=== PATIENT | female | born 1980 | race Caucasian/White ===

== ENCOUNTER 2017-01-24 07:42 | Emergency (ER) | payer OTHER ==
[2017-01-24 08:10] VITALS: BP 121/58
--- NOTE | 2017-01-24 09:12 | UC ---
Throat Pain/Nasal Jono HPI - HPI Summary HPI Summary: 36 Y/O female being seen for C/O sore throat and nasal congestion. States has had symptoms x 5 days. Denies nausea, vomiting, or respiratory dyspnea. Has been taking OTC medications with some relief. Requesting strep test. Medications reviewed at this visit. - History of Current Complaint Chief Complaint: UCGeneralIllness Stated Complaint: ALLERGIES,SORE THROAT Time Seen by Provider: 01/24/17 08:07 Hx Obtained From: Patient Hx Last Menstrual Period: 01/06/17 ?: No Onset/Duration: Lasting Days Severity: Moderate Pain Scale Used: 0-10 Numeric Cough: Productive Associated Signs & Symptoms: Positive: Negative - Epiglottits Risk Factors Epiglottis Risk Factors: Negative - Allergies/Home Medications Allergies/Adverse Reactions: Allergies Allergy/AdvReac Type Severity Reaction Status Date / Time No Known Allergies Allergy Verified 01/24/17 08:09 Home Medications: Home Medications Cetirizine* [ZyrTEC 10 MG TAB*] 1 tab PO DAILY 01/24/17 [History Confirmed 01/24] Insulin Infusion Pump [MinimXopik 670G Insulin Pump] 1 applic SUBCUT SEE INSTRUCTIONS 01/24/17 [History Confirmed 01/24/17] PMH/Surg Hx/FS Hx/Imm Hx Endocrine History Of: Reports: Diabetes - Type I - Surgical History Surgical History: None - Social History Alcohol Use: Weekly Alcohol Amount: 2 x weekly Substance Use Type: None Smoking Status (MU): Never Smoked Tobacco Review of Systems Constitutional: Negative Skin: Negative Eyes: Negative ENT: Sore Throat, Nasal Discharge Respiratory: Negative Cardiovascular: Negative Gastrointestinal: Negative Genitourinary: Negative Motor: Negative Neurovascular: Negative Musculoskeletal: Negative Neurological: Negative Psychological: Negative All Other Systems Reviewed And Are Negative: Yes Physical Exam Triage Information Reviewed: Yes Appearance: Well-Appearing Vital Signs: Initial Vital Signs Temp 98.1 F 01/24/17 08:02 Pulse 66 01/24/17 08:02 Resp 18 01/24/17 08:02 BP 121/58 01/24/17 08:02 Pulse Ox 98 01/24/17 08:02 Eye Exam: Normal ENT Exam: Other ENT: Positive: Pharyngeal erythema Dental Exam: Normal Neck exam: Normal Respiratory Exam: Normal Cardiovascular Exam: Normal Abdominal Exam: Normal Bowel Sounds: Positive: Present Musculoskeletal Exam: Normal Neurological Exam: Normal Psychological Exam: Normal Skin Exam: Normal Throat Pain/Nasal Course/Dx - Differential Dx/Diagnosis Differential Diagnosis/HQI/PQRI: Epiglottitis, Laryngitis, Pharyngitis, Tonsillitis Provider Diagnoses: Pharyngitis Discharge - Discharge Plan Condition: Stable Disposition: HOME Patient Education Materials: Pharyngitis (ED) Additional Instructions: If symptoms persist (do not improve over the next week) please follow up with primary care provider. May return to walk in for worsening symptoms.
== END 2017-01-24 09:31 | disposition home or self-care (01) ==
LOC: UCEAST 07:42
DX: J02.9 Acute pharyngitis, unspecified (principal)
CPT/HCPCS: 87651; 99211; G0463

== ENCOUNTER 2017-06-07 09:51 | Observation (INO) | payer OTHER ==
[2017-06-07] MEDS: NS 0.9% 1000 ML* 2,000 ML IV ONE ×2 (10:34→11:37)
[2017-06-07 10:52] LABS: Hematocrit 44 % (35-47); Hemoglobin 14.9 g/dl (12.0-16.0); Mean Corpuscular HGB Conc 34 g/dl (31-36); Mean Corpuscular Hemoglobin 29 pg (27-31); Mean Corpuscular Volume 86 fL (80-97); Mean Platelet Volume 9 um3 (7.4-10.4); Red Blood Count 5.08 10^6/ul (4.0-5.4); Red Cell Distribution Width 14 % (10.5-15); White Blood Count 14.3 10^3/ul (3.5-10.8)
[2017-06-07 11:00] LABS: Venous Bicarbonate HCO3 14.5 mmol/L (24-28)
[2017-06-07 11:16] LABS: Albumin 4.6 g/dL (3.2-5.2); BUN/Creatinine Ratio 16.9 (8-20); C Reactive Protein 2.86 mg/L (< 5.00); Calcium 9.6 mg/dL (8.6-10.3); EGFR African American 91.3 (>60); Globulin 2.8 g/dL (2-4); Potassium 4.2 mmol/L (3.5-5.0); Total Protein 7.4 g/dL (6.4-8.9)
[2017-06-07] MEDS ORDERED: Ketorolac INJ* 30 MG/ML 1 ML VIAL IV ONE (11:38)
[2017-06-07] MEDS ORDERED: Ondansetron INJ* 2 MG/ML VIAL IV ONE (11:38)
[2017-06-07] MEDS ORDERED: Ondansetron INJ* 2 MG/ML VIAL ONE (11:39)
[2017-06-07] MEDS ORDERED: Ketorolac INJ* 30 MG/ML 1 ML VIAL ONE (11:39)
--- NOTE | 2017-06-07 12:37 | ED ---
Kat Padilla Nilda, scribed for Ramy Caballero MD on 06/07/17 at 1014 . HPI Diabetic - HPI Summary HPI Summary: This patient is a 37 year old F presenting to [facility] accompanied by with a chief complaint of elevated blood sugar since 0100 this morning. The patient rates the pain 4/10 in severity. Symptoms aggravated and alleviated by nothing including insulin administered through out the day via insulin pump (first dose at 0200). Patient reports nausea and vomiting. Patient reports she may have DKA based on test strips used [employer]. The patient notes that initial blood glucose reading did not register when checked [employer] because reading was too high. Her blood glucose has not been able to substantially decrease. PMHx includes IDDM. - History Of Current Complaint Chief Complaint: EDDiabeticProb Time Seen by Provider: 06/07/17 10:09 Hx Obtained From: Patient Hx Last Menstrual Period: 01/06/17 Onset/Duration: Sudden Onset, Lasting Hours Severity Currently: Moderate Character: Alert Aggravating: Nothing Associated Signs & Symptoms: Nausea, Vomiting Related History: Insulin Requiring, Insulin Pump - Allergies/Home Medications Allergies/Adverse Reactions: Allergies Allergy/AdvReac Type Severity Reaction Status Date / Time No Known Allergies Allergy Verified 06/07/17 09:56 PMH/Surg Hx/FS Hx/Imm Hx Endocrine/Hematology History: Reports: Hx Diabetes - Type I Opthamlomology History: Denies: Hx Legally Blind EENT History: Denies: Hx Deafness Infectious Disease History: Denies: Traveled Outside the [place] in Last 30 Days - Family History Known Family History: Positive: Diabetes Negative: Hypertension - Social History Alcohol Use: Weekly Alcohol Amount: 2 x weekly Substance Use Type: Reports: None Smoking Status (MU): Never Smoked Tobacco Review of Systems Positive: Other - elevated blood sugar Positive: Vomiting, Nausea All Other Systems Reviewed And Are Negative: Yes Physical Exam Triage Information Reviewed: Yes Vital Signs On Initial Exam: Initial Vitals BP 112/60 06/07/17 09:57 Vital Signs Reviewed: Yes Appearance: Positive: Well-Appearing, No Pain Distress Skin: Positive: Warm, Skin Color Reflects Adequate Perfusion, Dry Head/Face: Positive: Normal Head/Face Inspection Eyes: Positive: Normal ENT: Positive: Normal ENT inspection Neck: Positive: Supple, Nontender Respiratory/Lung Sounds: Positive: Clear to Auscultation, Breath Sounds Present Cardiovascular: Positive: RRR Abdomen Description: Positive: Nontender, Soft Bowel Sounds: Positive: Present Musculoskeletal: Positive: Normal Neurological: Positive: Normal Psychiatric: Positive: Normal - [place] Coma Scale Coma Scale Total: 15 Diagnostics - Vital Signs Vital Signs Pulse BP Pulse Ox 06/07/17 10:00 87 113/62 100 06/07/17 09:59 83 100 06/07/17 09:57 112/60 - Laboratory Lab Results: Lab Results 06/07/17 06/07/17 06/07/17 Range/Units 10:35 10:35 10:35 WBC 14.3 H (3.5-10.8) 10^3/ul RBC 5.08 (4.0-5.4) 10^6/ul Hgb 14.9 (12.0-16.0) g/dl Hct 44 (35-47) % MCV 86 (80-97) fL MCH 29 (27-31) pg MCHC 34 (31-36) g/dl RDW 14 (10.5-15) % Plt Count 205 (150-450) 10^3/ul MPV 9 (7.4-10.4) um3 Neut % (Auto) 89.9 H (38-83) % Lymph % (Auto) 7.3 L (25-47) % [place] % (Auto) 2.1 (1-9) % Eos % (Auto) 0.3 (0-6) % Baso % (Auto) 0.4 (0-2) % Absolute Neuts (auto) 12.8 H (1.5-7.7) 10^3/ul Absolute Lymphs (auto) 1.0 (1.0-4.8) 10^3/ul Absolute Monos (auto) 0.3 (0-0.8) 10^3/ul Absolute Eos (auto) 0 (0-0.6) 10^3/ul Absolute Basos (auto) 0.1 (0-0.2) 10^3/ul Absolute Nucleated RBC 0 10^3/ul Nucleated RBC % 0 VBG pH (7.33-7.43) VBG pCO2 (41-51) mmHg VBG pO2 (35-45) mmHg VBG HCO3 (24-28) mmol/L VBG O2 Saturation (70-80) % VBG Base Excess (0-4) Sodium 135 (133-145) mmol/L Potassium 4.2 (3.5-5.0) mmol/L Chloride 99 L (101-111) mmol/L Carbon Dioxide 20 L (22-32) mmol/L Anion Gap 16 H (2-11) mmol/L BUN 15 (6-24) mg/dL Creatinine 0.89 (0.51-0.95) mg/dL Est GFR ( Amer) 91.3 (>60) Est GFR (Non-Af Amer) 71.0 (>60) BUN/Creatinine Ratio 16.9 (8-20) Glucose 345 H (70-100) mg/dL POC Glucose (mg/dL) (70-100) mg/dL Lactic Acid 3.1 H* (0.5-2.0) mmol/L Calcium 9.6 (8.6-10.3) mg/dL Total Bilirubin 2.00 H (0.2-1.0) mg/dL AST 20 (13-39) U/L ALT 15 (7-52) U/L Alkaline Phosphatase 73 (34-104) U/L C-Reactive Protein 2.86 (< 5.00) mg/L Total Protein 7.4 (6.4-8.9) g/dL Albumin 4.6 (3.2-5.2) g/dL Globulin 2.8 (2-4) g/dL Albumin/Globulin Ratio 1.6 (1-3) Beta HCG, Quant 1.92 mIU/mL 06/07/17 06/07/17 Range/Units 10:35 10:45 WBC (3.5-10.8) 10^3/ul RBC (4.0-5.4) 10^6/ul Hgb (12.0-16.0) g/dl Hct (35-47) % MCV (80-97) fL MCH (27-31) pg MCHC (31-36) g/dl RDW (10.5-15) % Plt Count (150-450) 10^3/ul MPV (7.4-10.4) um3 Neut % (Auto) (38-83) % Lymph % (Auto) (25-47) % [place] % (Auto) (1-9) % Eos % (Auto) (0-6) % Baso % (Auto) (0-2) % Absolute Neuts (auto) (1.5-7.7) 10^3/ul Absolute Lymphs (auto) (1.0-4.8) 10^3/ul Absolute Monos (auto) (0-0.8) 10^3/ul Absolute Eos (auto) (0-0.6) 10^3/ul Absolute Basos (auto) (0-0.2) 10^3/ul Absolute Nucleated RBC 10^3/ul Nucleated RBC % VBG pH 7.22 L (7.33-7.43) VBG pCO2 35 L (41-51) mmHg VBG pO2 37 (35-45) mmHg VBG HCO3 14.5 L (24-28) mmol/L VBG O2 Saturation 72.8 (70-80) % VBG Base Excess -12.5 L (0-4) Sodium (133-145) mmol/L Potassium (3.5-5.0) mmol/L Chloride (101-111) mmol/L Carbon Dioxide (22-32) mmol/L Anion Gap (2-11) mmol/L BUN (6-24) mg/dL Creatinine (0.51-0.95) mg/dL Est GFR ( Amer) (>60) Est GFR (Non-Af Amer) (>60) BUN/Creatinine Ratio (8-20) Glucose (70-100) mg/dL POC Glucose (mg/dL) 335 H (70-100) mg/dL Lactic Acid (0.5-2.0) mmol/L Calcium (8.6-10.3) mg/dL Total Bilirubin (0.2-1.0) mg/dL AST (13-39) U/L ALT (7-52) U/L Alkaline Phosphatase (34-104) U/L C-Reactive Protein (< 5.00) mg/L Total Protein (6.4-8.9) g/dL Albumin (3.2-5.2) g/dL Globulin (2-4) g/dL Albumin/Globulin Ratio (1-3) Beta HCG, Quant mIU/mL Result Diagrams: 06/07/17 10:35 06/07/17 10:35 Lab Statement: Any lab studies that have been ordered have been reviewed, and results considered in the medical decision making process. Diabetic Course/Dx - Course Course Of Treatment: Ms. Chinchilla presented because she has been having trouble keeping her BS down and tested her urine for ketones. She was found to be in mild DKA and was given IV NS. Dr. Menezes recommended OBV and the hospitalists are admitting her. - Diagnoses Provider Diagnoses: DKA (diabetic ketoacidoses) Discharge - Discharge Plan Condition: Stable Disposition: ADMITTED TO [facility] The documentation as recorded by the Kat narvaez Nilda accurately reflects the service I personally performed and the decisions made by me, Ramy Caballero MD.
[2017-06-07] MEDS: Ondansetron INJ* 2 MG/ML VIAL IV SCH ×3 (12:56→22:43)
[2017-06-07] MEDS ORDERED: NS 0.45% KCl 20 Meq 1000 ML* 1,000 ML IV SCH (13:00)
[2017-06-07] MEDS ORDERED: Insulin REGULAR(*) 1 UNITS UNIT SUBCUT ONE (13:10)
[2017-06-07] MEDS ORDERED: Insulin REGULAR(*) 1 UNITS UNIT ONE (13:42)
[2017-06-07 14:26] LABS: Urine Bilirubin Negative (Negative); Urine Glucose 3+(>=500 mg/dL) (Negative); Urine Nitrite Negative (Negative)
[2017-06-07 14:43] LABS: BUN/Creatinine Ratio 21.2 (8-20); Blood Urea Nitrogen 18 mg/dL (6-24); Calcium 8.5 mg/dL (8.6-10.3); Chloride 106 mmol/L (101-111); EGFR African American 96.3 (>60); EGFR Non-African American 74.9 (>60); Glucose 307 mg/dL (70-100); Phosphorus 3.4 mg/dL (2.5-5.0); Sodium 138 mmol/L (133-145)
[2017-06-07 14:57] LABS: Anion Gap 18 mmol/L (2-11); CO2 Carbon Dioxide 14 mmol/L (22-32)
[2017-06-07] MEDS: D5W 1/2 NS KCl 20 Meq 1000 ML* 1,000 ML IV SCH ×2 (15:00→21:34)
--- NOTE | 2017-06-07 15:55 | HP ---
HISTORY AND PHYSICAL: DATE OF ADMISSION: 06/07/17 ADMITTING PHYSICIAN: Lj Boyce MD PRIMARY CARE PROVIDER: Nestor Menezes MD CHIEF COMPLAINT: Nausea, vomiting, and hyperglycemia. HISTORY OF PRESENT ILLNESS: The patient is a 37-year-old female with past medical history of type 1 diabetes, on insulin pump, usually well managed, who woke up at 1 a.m. with nausea, vomiting, and noticed hyperglycemia. About 2 a.m., her blood sugars were in the 500s. Since then she has been self- administering herself boluses via her insulin pump overnight, but they only managed to get down to the mid 350s by ingot header. She contacted her primary care physician and concrete spreader, Dr. Nestor Menezes, who asked her to present to the emergency room. Of note, she also performed a point of care urine ketone test, which was rapidly positive. On presentation to the emergency room, she had anion gap of 16 with sodium 135, chloride 99, bicarb 20. VBG, 7.22, PCO2 35 , PO2 37, bicarb 14.5. She has been attesting to rapid heart rate/palpitations given her heart rates in the mid 80s. 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 She has a bad taste in her mouth. She has been having diarrhea overnight and episodes of nausea and vomiting continue, although did feel somewhat improved with the Zofran given in the ED. Initial vital signs are blood pressure 112/60, temperature 98.5 Fahrenheit, heart rate between 70 and 82, respiratory rate 17 to 19, on room air satting 100%. She denies fevers, chills, sick contacts. Did present with white count of 14.3, 89.9% neutrophils, lactic acidosis 3.1, presentation glucose was 345. CRP 2.8, within normal limits. Emergency physicians contacted Dr. Menezes, who recommended admission by hospitalist service and he will assume care hospital day #2. PAST MEDICAL HISTORY: Type 1 diabetic with an insulin pump. HOME MEDICATIONS: Include insulin pump with basal settings as outlined: At 12 a.m., 0.7 units an hour; 6 a.m. 0.85 units an hour; 10 a.m., 0.7 units an hour; 2 p.m., 0.8 units an hour; uses mealtime correction bolus of 1 unit for every 12g carbs. ALLERGIES: No known drug allergies. FAMILY HISTORY: Her dad is a type 2 vs 1.5 diabetic. SOCIAL HISTORY: Lives with , Wallace. 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 Nonsmoker, occasional social drinker, no illicit drug use. , Wallace, is her medical surrogate. REVIEW OF SYSTEMS: Complete 14-point review systems was negative except as per noted in the HPI. Of note, significant for nausea, vomiting, diarrhea, slight headache, and bad taste in her mouth, shortness of breath, palpitations. Denies chest pain, fevers, chills, sick contacts, rashes, weakness, vision changes, dysuria, increased frequency. PHYSICAL EXAMINATION GENERAL: The patient is in no acute distress, but occasionally sitting up with some nausea. HEENT: Atraumatic, normocephalic. No scleral icterus. No oropharynx lesions. NECK: Neck supple. No cervical lymphadenopathy. RESPIRATORY: Rapid shallow breathing. No wheezing, rales, or rhonchi. CARDIOVASCULAR: Normal S1 and S2. Normal rate and rhythm. No murmurs, rubs, or gallops. ABDOMEN: Soft, nontender, nondistended. No rebound. No guarding. EXTREMITIES: Warm, well perfused. No edema. SKIN: No lesions, no rashes. NEURO: BOYKIN, CNII-IIX intact, sensation intact ASSESSMENT AND PLAN: The patient is a 37-year-old female, type 1 diabetic, presenting in diabetic ketoacidosis despite insulin pump at home, also with associated nausea, vomiting, diarrhea, subjective shortness of breath, palpitations. The patient has been managing the diabetic ketoacidosis on her own at home, giving herself 4-unit boluses every hour most recently. We will ask the patient to stop using her insulin pump, i.e., turn it off for now. We will initiate DKA insulin protocol, bring her to the ICU for frequent blood draws (BMP) initially every 2 to 4 hours, with POCT glucose every hour. BMP, mag, phos until anion gap is resolved. Close monitoring of her potassium, we will supplement and hydrate aggressively with half normal saline with 20 mEq potassium supplementation with plan to transition to D5 half-normal saline once blood glucose drops below 200-250. We will continue with frequent monitoring until gap is closed and then restart her insulin pump versus give her long- acting Lantus insulin given the concern that the pump may be somewhat failing versus insulin may be bad. Case was discussed with Dr. Nestor Menezes, who will take over the case tomorrow. The patient will be treated symptomatically for her nausea, vomiting with Zofran every 4 to 6 hours. Get EKG to confirm the QTc is in safe range. The patient really has no other medical issues and will be hopefully discharged by tomorrow. We will monitor for any other signs of secondary infection though likely triggered by either a malfunctioning pump or gastroenteritis bout. The patient is a full code. The patient will be n.p.o. while on insulin drip. Plan to transition to carb consistent diet after gap is closed and tolerating p.o. without nausea. [id number]/CPS #: [id number] MTDD
[2017-06-07 16:11] LABS: EGFR African American 104.7 (>60); EGFR Non-African American 81.4 (>60); Potassium 3.6 mmol/L (3.5-5.0)
[2017-06-07 20:44] LABS: BUN/Creatinine Ratio 17.4 (8-20); Calcium 7.8 mg/dL (8.6-10.3); EGFR African American 122.5 (>60); EGFR Non-African American 95.2 (>60); Magnesium 1.6 mg/dL (1.9-2.7); Potassium 3.9 mmol/L (3.5-5.0)
[2017-06-07] MEDS ORDERED: Insulin LISPRO* 1 UNITS UNIT SUBCUT SCH ×2 (21:00)
[2017-06-07] MEDS ORDERED: Insulin LISPRO* FOR INSULIN PUMP SUBCUT SCH (22:00)
[2017-06-07] MEDS ORDERED: Dextrose 50% Syringe 50 ML* 25 GM/50 ML SYRINGE IV PUSH PRN (22:11)
[2017-06-07] MEDS ORDERED: [UNRECOGNIZED DRUG - OTHER] SUBCUT SCH (23:00)
[2017-06-08] MEDS ORDERED: Ibuprofen TAB* 600 MG PO PRN (00:40)
[2017-06-08] MEDS ORDERED: Insulin LISPRO* 1 UNITS UNIT SUBCUT SCH ×3 (01:00→07:30)
[2017-06-08] MEDS: Ondansetron INJ* 2 MG/ML VIAL IV SCH ×2 (01:11→05:35)
[2017-06-08] MEDS ORDERED: Dextrose 50% Syringe 50 ML* 25 GM/50 ML SYRINGE IV PUSH PRN (04:04)
[2017-06-08] MEDS ORDERED: Insulin LISPRO* 1 UNITS UNIT SUBCUT ONE (04:04)
[2017-06-08] MEDS ORDERED: Ondansetron INJ* 2 MG/ML VIAL IV PRN (05:54)
[2017-06-08 06:27] LABS: Hematocrit 33 % (35-47); Hemoglobin 11.5 g/dl (12.0-16.0); Mean Corpuscular HGB Conc 35 g/dl (31-36); Mean Corpuscular Hemoglobin 30 pg (27-31); Mean Corpuscular Volume 85 fL (80-97); Mean Platelet Volume 9 um3 (7.4-10.4); Red Cell Distribution Width 14 % (10.5-15); White Blood Count 8.7 10^3/ul (3.5-10.8)
[2017-06-08 06:36] LABS: BUN/Creatinine Ratio 18.4 (8-20); Calcium 8.1 mg/dL (8.6-10.3); EGFR African American 109.5 (>60); EGFR Non-African American 85.2 (>60); Potassium 3.3 mmol/L (3.5-5.0)
--- NOTE | 2017-06-08 06:52 | PN ---
Progress Note - Progress Note Date of Service: 06/08/17 Note: Cross cover: Pt felt as if she was hypoglycemic this AM. FSG was 40. She received 12.5mg dextrose. I believe the short acting lispro coverage overnight was to blame. Decreasing lispro SS to medium dose. I am not changing her basal rate on her pump.
--- NOTE | 2017-06-08 07:57 | PN ---
Subjective - Subjective Reason for Note: Discharge Note History: DISCHARGE SUMMARY I have reviewed Orin Chinchilla's presentation and management with the patient and also with Lj Boyce MD's admitting H and P. She has T1D and has never had an admission with diabetic ketoacidosis. She is using an insulin pump and has reasonable glycemic control - last A1c 7.7% March,. She last changed her infusion set on Wednesday (today Wednesday) On Wednesday she went to [facility] with her family. In the evening it was her 6 year old son Rocco's 5th birthday and she ate birthday cake and ice cream. She developed nausea, vomiting and diarrhea. Her glucose was high on her glucometer and she couldn't bring it down. As soon as she reached the ICU and received IVF and insulin her diabetes came under control. She has had no further nausea/vomiting/diarrhea. This morning she had a hypoglycemic episode. She resumed her insulin pump last night, but has had 2 correction boluses of lispro insulin outside of the pump. She refilled the pump with the home insulin vial. She feels hungry and is ready to go home as she is otherwise feeling better. Active Problems: Active Problems Diabetic ketoacidosis (Acute) E13.10 Insulin pump status (Acute) Z96.41 Type 1 diabetes mellitus without complication (Acute) E10.9 Current Medications: Current Medications Dextrose (D50w Syringe 50 Ml*) 12.5 gm IV PUSH .FOR FS < 60 - SS PRN PRN Reason: FS < 60 Last Admin: 06/08/17 06:40 Dose: 12.5 gm Ibuprofen (Motrin Tab*) 600 mg PO Q6H PRN PRN Reason: PAIN Last Admin: 06/08/17 00:55 Dose: 600 mg Insulin Human Lispro (Humalog*) 0 units SUBCUT ACHS [facility] PRN Reason: Protocol Insulin Human Lispro (Humalog*) 0 units SUBCUT .Q24H [facility] PRN Reason: Protocol Insulin Human Lispro (Humalog*) 0 units SUBCUT ACHS [facility] PRN Reason: Protocol Ondansetron HCl (Zofran Inj*) 4 mg IV Q4H PRN PRN Reason: NAUSEA - Review of Systems Constitutional Symptoms: Yes: Fatigue, Night Sweats - sweats with hypoglycemia, No: Fever Dermatology: Rash: No Pulmonary: Negative: Cough, Sputum Cardiology: Negative: Chest Pain, Shortness of Breath, Swelling of Ankles Gastroenterology: Positive: Nausea, Vomiting, Diarrhea Negative: Abdominal Pain Home Medications: Home Medications Medication Instructions Recorded Confirmed Type Cetirizine* [ZyrTEC 10 MG TAB*] 1 tab PO DAILY 01/24/17 01/24/17 History Insulin Infusion Pump [Minimed 1 applic SUBCUT SEE INSTRUCTIONS 01/24/17 History 670G Insulin Pump] Allergies: Allergies Allergy/AdvReac Type Severity Reaction Status Date / Time No Known Allergies Allergy Verified 06/07/17 09:56 Objective - Vital Signs Vital Signs: Vital Signs 06/07/17 06/07/17 06/07/17 12:53 12:56 12:59 Temperature 99.4 F Pulse Rate 79 80 Respiratory 20 8 27 Rate Blood Pressure 96/54 96/54 (mmHg) O2 Sat by Pulse 100 99 Oximetry 06/07/17 06/07/17 06/07/17 13:00 13:05 13:06 Temperature Pulse Rate 82 89 Respiratory 24 17 20 Rate Blood Pressure (mmHg) O2 Sat by Pulse 100 99 Oximetry 06/07/17 06/07/17 06/07/17 14:00 14:02 14:07 Temperature Pulse Rate 80 81 82 Respiratory 36 18 25 Rate Blood Pressure 110/44 (mmHg) O2 Sat by Pulse 100 100 100 Oximetry 06/07/17 06/07/17 06/07/17 14:11 15:00 15:58 Temperature Pulse Rate 88 Respiratory 20 17 22 Rate Blood Pressure (mmHg) O2 Sat by Pulse 100 Oximetry 06/07/17 06/07/17 06/07/17 16:00 16:13 16:23 Temperature 100.5 F Pulse Rate 88 88 Respiratory 19 20 Rate Blood Pressure (mmHg) O2 Sat by Pulse 100 100 Oximetry 06/07/17 06/07/17 06/07/17 16:35 16:59 17:00 Temperature Pulse Rate 93 77 77 Respiratory 40 8 14 Rate Blood Pressure 108/50 97/45 (mmHg) O2 Sat by Pulse 100 99 99 Oximetry 06/07/17 06/07/17 06/07/17 17:01 17:06 18:00 Temperature Pulse Rate 80 89 83 Respiratory 4 18 18 Rate Blood Pressure 114/58 (mmHg) O2 Sat by Pulse 99 100 99 Oximetry 06/07/17 06/07/17 06/07/17 18:01 18:03 18:05 Temperature Pulse Rate 85 87 Respiratory 26 22 18 Rate Blood Pressure (mmHg) O2 Sat by Pulse 98 98 Oximetry 06/07/17 06/07/17 06/07/17 18:29 19:00 19:10 Temperature 100 F Pulse Rate 74 77 Respiratory 16 24 Rate Blood Pressure (mmHg) O2 Sat by Pulse 99 99 Oximetry 06/07/17 06/07/17 06/07/17 20:00 20:30 21:00 Temperature 99.9 F Pulse Rate Respiratory 22 4 23 Rate Blood Pressure (mmHg) O2 Sat by Pulse 99 97 98 Oximetry 06/07/17 06/07/17 06/07/17 22:00 22:13 22:37 Temperature Pulse Rate Respiratory 19 20 19 Rate Blood Pressure 106/55 (mmHg) O2 Sat by Pulse 100 99 100 Oximetry 06/07/17 06/07/17 06/07/17 23:00 23:01 23:12 Temperature Pulse Rate 75 77 80 Respiratory 22 22 17 Rate Blood Pressure 109/59 (mmHg) O2 Sat by Pulse 100 100 100 Oximetry 06/07/17 06/08/17 06/08/17 23:13 00:00 01:00 Temperature 98.9 F Pulse Rate 82 91 71 Respiratory 16 20 21 Rate Blood Pressure 106/54 (mmHg) O2 Sat by Pulse 100 100 99 Oximetry 06/08/17 06/08/17 06/08/17 01:01 02:00 03:00 Temperature Pulse Rate 72 68 66 Respiratory 22 17 19 Rate Blood Pressure 91/48 101/48 (mmHg) O2 Sat by Pulse 98 97 98 Oximetry 06/08/17 06/08/17 06/08/17 03:58 04:00 05:00 Temperature 99.4 F Pulse Rate 78 61 Respiratory 12 12 Rate Blood Pressure 92/49 (mmHg) O2 Sat by Pulse 99 98 Oximetry 06/08/17 06/08/17 06/08/17 05:01 06:00 06:01 Temperature Pulse Rate 61 Respiratory 12 18 12 Rate Blood Pressure 100/61 (mmHg) O2 Sat by Pulse 98 99 99 Oximetry 06/08/17 07:51 Temperature 98.1 F Pulse Rate Respiratory Rate Blood Pressure (mmHg) O2 Sat by Pulse Oximetry - Intake and Output Intake and Output: Intake & Output 06/05/17 06/06/17 06/07/17 06/08/17 11:59 11:59 11:59 11:59 Intake Total 1977.2 Output Total 2550 Balance -572.8 Weight 168 lb 10.458 oz Intake: IV Fluids 1562 NS (0.45%) 20 meq KCL 1552 NS (0.9%) 10 Medicated IV 15.2 CC - Insulin 15.2 Oral 400 Output: Urine 2100 Emesis 450 Other: Estimated Void Large # Voids 1 ADLs: Meal Record Start: 06/07/17 12: 53 Freq: 09,13,18 Status: Active Created 06/07/17 12:53 System (Rec: 06/07/17 12:53 System [id number]) Document 06/07/17 13:07 [id number] (Rec: 06/07/17 13:07 [id number] ICU-C16) Document 06/07/17 18:00 [id number] (Rec: 06/07/17 20:21 [id number] ICU-C10) Intake and Output Start: 06/07/17 09: 56 Freq: Status: Active Created 06/07/17 09:56 System (Rec: 06/07/17 09:56 System [id number]) Intake and Output Start: 06/07/17 12: 53 Freq: 06,14,22 Status: Active Created 06/07/17 12:53 System (Rec: 06/07/17 12:53 System [id number]) Document 06/07/17 13:05 [id number] (Rec: 06/07/17 13:06 [id number] ICU-C16) Document 06/07/17 14:13 [id number] (Rec: 06/07/17 14:13 [id number] ICU-M06) Document 06/07/17 14:33 [id number] (Rec: 06/07/17 14:33 [id number] ICU-C10) Document 06/07/17 19:01 [id number] (Rec: 06/07/17 19:01 [id number] ICU-C16) Document 06/07/17 22:00 [id number] (Rec: 06/07/17 23:00 [id number] ICU-C10) Document 06/08/17 06:00 [id number] (Rec: 06/08/17 06:12 [id number] ICU-C16) - Physical Exam General Physical Exam Comment: Warm and well perfused. She is hemodynamically stable. She is fully alert, oriented and engaged in her own diabetes management General: No Cyanosis, No Anemia, No Jaundice, No Clubbing Skin: Normal: Rash Endocrine: No Central Obesity, No Hirsuitism, No Virilism, No Acromegaly, No Acanthosis nigricans, No Violaceious striae, No Zuleyma Syndrome, No Buccal pigmenatation, No Aguilar Crease Pigmentation Lungs and Chest: Yes: Chest Expansion Full, Chest Expansion Symetrica, Percussion Note Resonant, Vessicular Breath Sounds. No: Crackles, Wheezes, Respiratory Distress Heart Rate and Rhythm: Regular JVP: Not Elevated Additional Cardiovascular: Yes: Normal Heart Sounds. No: Heart Murmur, Pedal Edema Abdominal Exam: Yes: Soft, Bowel Sounds Present. No: Distention, Abdominal Mass , Abdominal Tenderness, Guarding, Rebound Tenderness Results - Results Lab Results: Laboratory Results - last 24 hr 06/07/17 06/07/17 06/07/17 12:42 13:22 14:05 WBC RBC Hgb Hct MCV MCH MCHC RDW Plt Count MPV Neut % (Auto) Lymph % (Auto) [place] % (Auto) Eos % (Auto) Baso % (Auto) Absolute Neuts (auto) Absolute Lymphs (auto) Absolute Monos (auto) Absolute Eos (auto) Absolute Basos (auto) Absolute Nucleated RBC Nucleated RBC % Sodium 138 Potassium TNP Chloride 106 Carbon Dioxide 14 L* Anion Gap 18 H BUN 18 Creatinine 0.85 Est GFR ( Amer) 96.3 Est GFR (Non-Af Amer) 74.9 BUN/Creatinine Ratio 21.2 H Glucose 307 H POC Glucose (mg/dL) 333 H Lactic Acid Calcium 8.5 L Phosphorus 3.4 Magnesium 2.0 Urine Color Straw Urine Appearance Clear Urine pH 5.0 Ur Specific [place] 1.025 Urine Protein Negative Urine Ketones 2+ H Urine Blood Negative Urine Nitrate Negative Urine Bilirubin Negative Urine Urobilinogen Negative Ur Leukocyte Esterase Negative Urine Glucose 3+(>=500 mg/dl) H 06/07/17 06/07/17 06/07/17 14:09 15:09 15:29 WBC RBC Hgb Hct MCV MCH MCHC RDW Plt Count MPV Neut % (Auto) Lymph % (Auto) [place] % (Auto) Eos % (Auto) Baso % (Auto) Absolute Neuts (auto) Absolute Lymphs (auto) Absolute Monos (auto) Absolute Eos (auto) Absolute Basos (auto) Absolute Nucleated RBC Nucleated RBC % Sodium 136 Potassium 3.6 Chloride 109 Carbon Dioxide 16 L Anion Gap 11 BUN 15 Creatinine 0.79 Est GFR ( Amer) 104.7 Est GFR (Non-Af Amer) 81.4 BUN/Creatinine Ratio 19.0 Glucose 167 H POC Glucose (mg/dL) 311 H 213 H Lactic Acid Calcium 8.0 L Phosphorus Magnesium Urine Color Urine Appearance Urine pH Ur Specific [place] Urine Protein Urine Ketones Urine Blood Urine Nitrate Urine Bilirubin Urine Urobilinogen Ur Leukocyte Esterase Urine Glucose 06/07/17 06/07/17 06/07/17 16:01 16:28 16:59 WBC RBC Hgb Hct MCV MCH MCHC RDW Plt Count MPV Neut % (Auto) Lymph % (Auto) [place] % (Auto) Eos % (Auto) Baso % (Auto) Absolute Neuts (auto) Absolute Lymphs (auto) Absolute Monos (auto) Absolute Eos (auto) Absolute Basos (auto) Absolute Nucleated RBC Nucleated RBC % Sodium Potassium Chloride Carbon Dioxide Anion Gap BUN Creatinine Est GFR ( Amer) Est GFR (Non-Af Amer) BUN/Creatinine Ratio Glucose POC Glucose (mg/dL) 176 H 175 H Lactic Acid 2.6 H* Calcium Phosphorus Magnesium Urine Color Urine Appearance Urine pH Ur Specific [place] Urine Protein Urine Ketones Urine Blood Urine Nitrate Urine Bilirubin Urine Urobilinogen Ur Leukocyte Esterase Urine Glucose 06/07/17 06/07/17 06/07/17 18:01 19:09 20:11 WBC RBC Hgb Hct MCV MCH MCHC RDW Plt Count MPV Neut % (Auto) Lymph % (Auto) [place] % (Auto) Eos % (Auto) Baso % (Auto) Absolute Neuts (auto) Absolute Lymphs (auto) Absolute Monos (auto) Absolute Eos (auto) Absolute Basos (auto) Absolute Nucleated RBC Nucleated RBC % Sodium 130 L Potassium 3.9 Chloride 105 Carbon Dioxide 20 L Anion Gap 5 BUN 12 Creatinine 0.69 Est GFR ( Amer) 122.5 Est GFR (Non-Af Amer) 95.2 BUN/Creatinine Ratio 17.4 Glucose 170 H POC Glucose (mg/dL) 185 H 186 H Lactic Acid Calcium 7.8 L Phosphorus Magnesium 1.6 L Urine Color Urine Appearance Urine pH Ur Specific [place] Urine Protein Urine Ketones Urine Blood Urine Nitrate Urine Bilirubin Urine Urobilinogen Ur Leukocyte Esterase Urine Glucose 06/07/17 06/07/17 06/08/17 21:31 23:04 00:31 WBC RBC Hgb Hct MCV MCH MCHC RDW Plt Count MPV Neut % (Auto) Lymph % (Auto) [place] % (Auto) Eos % (Auto) Baso % (Auto) Absolute Neuts (auto) Absolute Lymphs (auto) Absolute Monos (auto) Absolute Eos (auto) Absolute Basos (auto) Absolute Nucleated RBC Nucleated RBC % Sodium Potassium Chloride Carbon Dioxide Anion Gap BUN Creatinine Est GFR ( Amer) Est GFR (Non-Af Amer) BUN/Creatinine Ratio Glucose POC Glucose (mg/dL) 143 H 111 H 256 H Lactic Acid Calcium Phosphorus Magnesium Urine Color Urine Appearance Urine pH Ur Specific [place] Urine Protein Urine Ketones Urine Blood Urine Nitrate Urine Bilirubin Urine Urobilinogen Ur Leukocyte Esterase Urine Glucose 06/08/17 06/08/17 06/08/17 02:07 03:10 03:58 WBC RBC Hgb Hct MCV MCH MCHC RDW Plt Count MPV Neut % (Auto) Lymph % (Auto) [place] % (Auto) Eos % (Auto) Baso % (Auto) Absolute Neuts (auto) Absolute Lymphs (auto) Absolute Monos (auto) Absolute Eos (auto) Absolute Basos (auto) Absolute Nucleated RBC Nucleated RBC % Sodium Potassium Chloride Carbon Dioxide Anion Gap BUN Creatinine Est GFR ( Amer) Est GFR (Non-Af Amer) BUN/Creatinine Ratio Glucose POC Glucose (mg/dL) 283 H 243 H 213 H Lactic Acid Calcium Phosphorus Magnesium Urine Color Urine Appearance Urine pH Ur Specific [place] Urine Protein Urine Ketones Urine Blood Urine Nitrate Urine Bilirubin Urine Urobilinogen Ur Leukocyte Esterase Urine Glucose 06/08/17 06/08/17 06/08/17 05:03 06:05 06:05 WBC 8.7 RBC 3.90 L Hgb 11.5 L Hct 33 L MCV 85 MCH 30 MCHC 35 RDW 14 Plt Count 152 MPV 9 Neut % (Auto) 68.4 Lymph % (Auto) 23.9 L [place] % (Auto) 6.3 Eos % (Auto) 1.1 Baso % (Auto) 0.3 Absolute Neuts (auto) 5.9 Absolute Lymphs (auto) 2.1 Absolute Monos (auto) 0.5 Absolute Eos (auto) 0.1 Absolute Basos (auto) 0 Absolute Nucleated RBC 0 Nucleated RBC % 0 Sodium 131 L Potassium 3.3 L Chloride 105 Carbon Dioxide 22 Anion Gap 4 BUN 14 Creatinine 0.76 Est GFR ( Amer) 109.5 Est GFR (Non-Af Amer) 85.2 BUN/Creatinine Ratio 18.4 Glucose 59 L POC Glucose (mg/dL) 169 H Lactic Acid Calcium 8.1 L Phosphorus Magnesium Urine Color Urine Appearance Urine pH Ur Specific [place] Urine Protein Urine Ketones Urine Blood Urine Nitrate Urine Bilirubin Urine Urobilinogen Ur Leukocyte Esterase Urine Glucose 06/08/17 06:35 WBC RBC Hgb Hct MCV MCH MCHC RDW Plt Count MPV Neut % (Auto) Lymph % (Auto) [place] % (Auto) Eos % (Auto) Baso % (Auto) Absolute Neuts (auto) Absolute Lymphs (auto) Absolute Monos (auto) Absolute Eos (auto) Absolute Basos (auto) Absolute Nucleated RBC Nucleated RBC % Sodium Potassium Chloride Carbon Dioxide Anion Gap BUN Creatinine Est GFR ( Amer) Est GFR (Non-Af Amer) BUN/Creatinine Ratio Glucose POC Glucose (mg/dL) 41 L Lactic Acid Calcium Phosphorus Magnesium Urine Color Urine Appearance Urine pH Ur Specific [place] Urine Protein Urine Ketones Urine Blood Urine Nitrate Urine Bilirubin Urine Urobilinogen Ur Leukocyte Esterase Urine Glucose Assessment - Problem List Assessment: Patient Problems Diabetic ketoacidosis (Acute) Insulin pump status (Acute) Type 1 diabetes mellitus without complication (Acute) Plan: She is recovered this morning. I have 2 leading hypotheses about why she developed DKA: 1. Food poisoning from [employer] - none of her family members were affected, but she developed transient nausea, vomiting and diarrhea. This would have been accompanied by insulin resistance and hence DKA. 2. Spoiled insulin - she may have a vial of insulin that is for some reason no longer as active. Unfortunately, she filled her reservoir with the same vial in the hospital when restarting her insulin pump. I have instructed her to fill her reservoir with hospital lispro insulin and discard the vial. She will otherwise continue with her usual pump basal settings. She is ready for discharge after breakfast. I discussed the above with the patient and her father.
[2017-06-08 09:38] VITALS: BP 97/59
== END 2017-06-08 10:32 | disposition home or self-care (01) ==
LOC: ED 09:51 → INTOOBSV 12:06 → ICU 12:06
PROVIDERS: ADMIT Internal Medicine; ATTEND Internal Medicine
DX: E10.10 Type 1 diabetes mellitus with ketoacidosis without coma (principal); Z79.4 Long term (current) use of insulin; Z96.41 Presence of insulin pump (external) (internal); R11.2 Nausea with vomiting, unspecified
CPT/HCPCS: 36415; 80048; 80053; 81003; 82803; 83036; 83605; 83735; 84100; 84702; 85025; 86140; 87641; 93005; 96374; 96375; 96376; 99283; A9270-GY; G0378; J1885; J2405

== ENCOUNTER 2019-08-27 09:29 | Emergency (ER) | payer OTHER ==
[2019-08-27 09:38] VITALS: BP 119/73
--- NOTE | 2019-08-27 09:42 | UC ---
Respiratory Complaint HPI - HPI Summary HPI Summary: 39 yo female presents with sinus symptoms. She tells me that over the last week she has had sinus pain/pressure/congestion with post nasal drip. Has been taking OTC allergy medicine as well as dayquill/nyquill with good initial relief , but no longer helping. Over the last 2 days has had increased right front and maxillary sinus pressure and congestion. Denies fever, chills, sore throat, rash. - History of Current Complaint Chief Complaint: UCGeneralIllness Stated Complaint: SINUS ISSUE Time Seen by Provider: 08/27/19 09:42 Hx Obtained From: Patient Hx Last Menstrual Period: 08/14/19 Onset/Duration: Gradual Onset Severity Initially: Mild Severity Currently: Moderate Pain Intensity: 3 - Allergies/Home Medications Allergies/Adverse Reactions: Allergies Allergy/AdvReac Type Severity Reaction Status Date / Time No Known Allergies Allergy Verified 08/27/19 09:38 PMH/Surg Hx/FS Hx/Imm Hx Endocrine History: Diabetes - Surgical History Surgical History: None - Family History Known Family History: Positive: Diabetes Negative: Hypertension - Social History Occupation: Employed Full-time Lives: With Family Alcohol Use: Weekly Alcohol Amount: three times a week Substance Use Type: None Smoking Status (MU): Never Smoked Tobacco - Immunization History Most Recent Influenza Vaccination: 2016 Most Recent Pneumonia Vaccination: never Review of Systems All Other Systems Reviewed And Are Negative: No Constitutional: Positive: Negative Skin: Positive: Negative Eyes: Positive: Negative ENT: Positive: Nasal Discharge, Sinus Congestion, Sinus Pain/Tenderness Respiratory: Positive: Cough Cardiovascular: Positive: Negative Gastrointestinal: Positive: Negative Neurological: Positive: Negative Psychological: Positive: Negative Physical Exam - Summary Physical Exam Summary: GENERAL: NAD. WDWN. No pain distress. SKIN: No rashes, sores, lesions, or open wounds. HEENT: Head: AT/NC Eyes: EOM intact. Conjunctiva clear without inflammation or discharge. Ears: Hearing grossly normal. TMs intact, no bulging, erythema, or edema. Nose: Nasal mucosa mildly swollen and erythematous with yellow/ clear discharge. TTP maxillary and frontal sinus RIGHT > LEFT. Positive post nasal drip Throat: Posterior oropharynx without exudates, erythema, or tonsillar enlargement. Uvula midline. NECK: Supple. Nontender. No lymphadenopathy. CHEST: CTAB. No r/r/w. No accessory muscle use. Breathing comfortably and in no distress. CV: RRR. Pulses intact. NEURO: Alert. PSYCH: Age appropriate behavior. Triage Information Reviewed: Yes Vital Signs: Initial Vital Signs Temp 98.5 F 08/27/19 09:34 Pulse 70 08/27/19 09:34 Resp 15 08/27/19 09:34 BP 119/73 08/27/19 09:34 Pulse Ox 99 08/27/19 09:34 Vital Signs Reviewed: Yes Respiratory Course/Dx - Course Course Of Treatment: Sinusitis - Differential Dx/Diagnosis Provider Diagnosis: Sinusitis Discharge ED - Sign-Out/Discharge Documenting (check all that apply): Patient Departure All imaging exams completed and their final reports reviewed: No Studies - Discharge Plan Condition: Stable Disposition: HOME Prescriptions: Amoxicillin PO (*) [Amoxicillin 875 MG (*)] 875 mg PO BID #14 tab Patient Education Materials: Sinusitis (ED) Referrals: Nestor Menezes MD [Primary Care Provider] - Additional Instructions: If you develop a fever, shortness of breath, chest pain, new or worsening symptoms - please call your PCP or go to the ED immediately. - Billing Disposition and Condition Condition: STABLE Disposition: Home
== END 2019-08-27 09:54 | disposition home or self-care (01) ==
LOC: UCEAST 09:29
DX: J32.9 Chronic sinusitis, unspecified (principal); E11.9 Type 2 diabetes mellitus without complications
CPT/HCPCS: 99212; G0463

== ENCOUNTER 2022-08-17 16:46 | Observation (INO) ==
[2022-08-17] MEDS ORDERED: Iodixanol (CONTRAST) 320 MG/ML 100 ML SDV IV ONE (17:15)
[2022-08-17 17:19] LABS: ABS Eosinophils 0.2 10^3/ul (0-0.6); ABS Lymphocytes 2.1 10^3/ul (1.0-4.8); ABS Monocytes 0.4 10^3/ul (0-0.8); ABS Neutrophils 3.7 10^3/ul (1.5-7.7); Hematocrit 45 % (35-47); Hemoglobin 14.9 g/dL (12.0-16.0); Lymphocyte % 32.3 %; Mean Corpuscular HGB Conc 34 g/dL (31-36); Mean Corpuscular Hemoglobin 28 pg (27-31); Mean Corpuscular Volume 85 fL (80-97); Mean Platelet Volume 8.3 fL (7.4-10.4); Platelet Count 219 10^3/uL (150-450); Red Blood Count 5.26 10^6 /uL (3.70-4.87); Red Cell Distribution Width 14 % (10-15); White Blood Count 6.4 10^3/uL (3.5-10.8)
[2022-08-17 17:31] LABS: Activated Partial Thrombo Time 32.1 seconds (26.0-38.0); INR 1.12 (0.89-1.11)
[2022-08-17 17:51] LABS: Albumin 4.7 g/dL (3.2-5.2); Albumin/Globulin Ratio 2.1 (1-3); Calcium 9.5 mg/dL (8.6-10.3); Globulin 2.2 g/dL (2-4); HDL Cholesterol 122.6 mg/dL; Potassium 3.9 mmol/L (3.5-5.0); Total Bilirubin 1.6 mg/dL (0.2-1.0); Total Protein 6.9 g/dL (6.4-8.9); eGFR CKD-EPI 92.3 (>60)
[2022-08-18] MEDS: SUBCUTANEOUS INSULIN PUMP SCH ×2 (02:59→03:00)
[2022-08-18 06:02] LABS: ABS Eosinophils 0.2 10^3/ul (0-0.6); ABS Monocytes 0.4 10^3/ul (0-0.8); Eosinophil % 3.7 %; Hematocrit 40 % (35-47); Hemoglobin 13.5 g/dL (12.0-16.0); Lymphocyte % 35.3 %; Mean Corpuscular HGB Conc 34 g/dL (31-36); Mean Corpuscular Hemoglobin 29 pg (27-31); Mean Corpuscular Volume 84 fL (80-97); Mean Platelet Volume 8.1 fL (7.4-10.4); Platelet Count 169 10^3/uL (150-450); Red Blood Count 4.71 10^6 /uL (3.70-4.87); Red Cell Distribution Width 15 % (10-15); White Blood Count 5.7 10^3/uL (3.5-10.8)
[2022-08-18 06:49] LABS: Calcium 8.7 mg/dL (8.6-10.3); eGFR CKD-EPI 98.1 (>60)
[2022-08-18 07:30] LABS: Urine Appearance Clear; Urine Bilirubin Negative (Negative); Urine Blood Negative (Negative); Urine Color Yellow; Urine Glucose Trace (100mg/dL) (Negative); Urine Ketones Negative (Negative); Urine Nitrite Negative (Negative); Urine Protein Negative (Negative); Urine Specific Gravity 1.015 (1.005-1.030); Urine Urobilinogen 0.2 (Negative) (Negative)
[2022-08-18 12:23] VITALS: BP 109/79
== END 2022-08-18 16:12 | disposition home or self-care (01) ==
LOC: ED 16:46 → EDHOLD 16:46 → SUATTDRO 18:53 → EDHOLD 08-18 08:03 → MEDTELE 08-18 08:22
PROVIDERS: ADMIT Hospitalist; ATTEND Internal Medicine